=== PATIENT | male | born 1995 | race Caucasian/White ===

== ENCOUNTER 2020-01-07 11:19 | Emergency (ER) | payer BC, OTHER ==
[2020-01-07] MEDS ORDERED: Tetracaine HCl/PF 0.5% 4 ML Bottle EYELF ONE (11:45)
--- NOTE | 2020-01-07 11:45 | EDM.PDOC ---
ED HPI GENERAL MEDICAL PROBLEM - General Chief Complaint: Eye Problems Stated Complaint: RIGHT EYE PAIN Time Seen by Provider: 01/07/20 11:30 Source of Information: Reports: Patient History Limitations: Reports: No Limitations - History of Present Illness INITIAL COMMENTS - FREE TEXT/NARRATIVE: This 25 year old male states that he picked up a grinding saw and turned it on and something may have gotten in his right eye. He complains of pain in the right eye with slight blurry vision. He denies any double vision or any other visual disturbances. Right Eye Pain Score (Numeric/FACES): 4 - Related Data Allergies Allergy/AdvReac Type Severity Reaction Status Date / Time amoxicillin Allergy Hives Verified 08/01/18 16:19 Home Meds: Home Meds Fluorometholone [Flarex 0.1% Ophth Susp] 5 ml EYERT ASDIRECTED #1 bottle [Rx] Past Medical History - Past Health History Medical/Surgical History: Denies Medical/Surgical History HEENT History: Reports: None Cardiovascular History: Reports: None Respiratory History: Reports: None Gastrointestinal History: Reports: None Genitourinary History: Reports: None Musculoskeletal History: Reports: None Neurological History: Reports: None Psychiatric History: Reports: Anxiety Endocrine/Metabolic History: Reports: None Hematologic History: Reports: None Immunologic History: Reports: None Oncologic (Cancer) History: Reports: None Dermatologic History: Reports: None - Infectious Disease History Infectious Disease History: Reports: Chicken Pox - Past Surgical History HEENT Surgical History: Reports: Adenoidectomy, Tonsillectomy Social & Family History - Family History Cardiac: Reports: Hypertension - Caffeine Use Caffeine Use: Reports: Coffee, Soda ED ROS GENERAL - Review of Systems Review Of Systems: See Below Constitutional: Reports: No Symptoms HEENT: Reports: Eye Pain (right eye pain with slight blurry vision). Denies: Eye Discharge, Glasses Respiratory: Reports: No Symptoms Cardiovascular: Reports: No Symptoms Endocrine: Reports: No Symptoms GI/Abdominal: Reports: No Symptoms : Reports: No Symptoms Musculoskeletal: Reports: No Symptoms Skin: Reports: No Symptoms Neurological: Reports: No Symptoms ED EXAM GENERAL W FULL EYE - Physical Exam Exam: See Below Exam Limited By: No Limitations General Appearance: Alert, WD/WN, No Apparent Distress Eye Exam: Right Eye: Conjunctival Injection (slight), Foreign Body (possible FB but Fluocencin stain is negative.), Vision Changes (slight blurry vision), Bilateral Eye: EOMI, Normal Fundi, PERRL (4mm) Visual Acuity (R) 20/: 25 Visual Acuity (L) 20/: 20 (OU is 20/15) With Correction: No Eyelids: Bilateral: Normal Appearance Conjunctiva & Sclera: Right: Injected (slightly injected) Cornea Exam: Right: Examined with Flourescein (Negative for FB or abrasion) Extraocular Movements: Bilateral: Intact Pupillary Size: Bilateral: 4 mm Pupillary Reaction: Bilateral: Brisk Anterior Chamber: Bilateral: Normal Appearance Posterior Chamber: Bilateral: Normal Funduscopic Ears: Normal External Exam, Normal TMs Nose: Normal Inspection Throat/Mouth: Normal Inspection, Normal Oropharynx Head: Atraumatic, Normocephalic Neck: Normal Inspection Respiratory/Chest: No Respiratory Distress, Lungs Clear Cardiovascular: Normal Peripheral Pulses, Regular Rate, Rhythm GI/Abdominal: Normal Bowel Sounds (Male) Exam: Deferred Rectal (Males) Exam: Deferred Back Exam: Normal Inspection Extremities: Normal Inspection, Normal Range of Motion Neurological: Alert, Oriented (times 4) Skin Exam: Warm, Dry, Intact, Normal Color, No Rash Course - Vital Signs Text/Narrative:: I reviewed the patient CT of the orbit which is unremarkable. He will be discharged. He agrees with the discharge plan. Last Recorded V/S: Last Vital Signs Temp 97.0 F 01/07/20 13:02 Pulse 66 01/07/20 13:02 Resp 16 01/07/20 13:02 BP 126/79 01/07/20 13:02 Pulse Ox 99 01/07/20 13:02 - Orders/Labs/Meds Meds: Medications Discontinued Medications Generic Name Dose Route Start Last Admin Trade Name Freq PRN Reason Stop Dose Admin Tetracaine HCl 1 ml 01/07/20 11:45 01/07/20 12:06 Tetracaine 0.5% Steri-Unit Mackenzie EYELF 01/07/20 11:46 1 ml ASDIRECTED ONE Administration Departure - Departure Time of Disposition: 13:20 Disposition: Home, Self-Care 01 Condition: Good Clinical Impression: Inflammation of right eye - Discharge Information *PRESCRIPTION DRUG MONITORING PROGRAM REVIEWED*: Yes *COPY OF PRESCRIPTION DRUG MONITORING REPORT IN PATIENT MALI: Yes Instructions: How to Use Eye Drops and Eye Ointments Referrals: PCP,None [Primary Care Provider] - Forms: ED Department Discharge, ED Return to Work/School Form Additional Instructions: Take all medications as directed. Follow up with your PCP in the next two to four days. Rest for the next 24 hours. NO work for two days. Return to the ED if your condition gets worse or should you have any questions or concerns. The following information is given to patients seen in the emergency department who are being discharged to home. This information is to outline your options for follow-up care. We provide all patients seen in our emergency department with a follow-up referral. The need for follow-up, as well as the timing and circumstances, are variable depending upon the specifics of your emergency department visit. If you don't have a primary care physician on staff, we will provide you with a referral. We always advise you to contact your personal physician following an emergency department visit to inform them of the circumstance of the visit and for follow-up with them and/or the need for any referrals to a consulting specialist. The emergency department will also refer you to a specialist when appropriate. This referral assures that you have the opportunity for follow-up care with a specialist. All of these measure are taken in an effort to provide you with optimal care, which includes your follow-up. Under all circumstances we always encourage you to contact your private physician who remains a resource for coordinating your care. When calling for follow-up care, please make the office aware that this follow-up is from your recent emergency room visit. If for any reason you are refused follow-up, please contact the [facility] Emergency Department at and asked to speak to the emergency department charge nurse. Sepsis Event Note - Focused Exam Vital Signs: Vital Signs Temp Pulse Resp BP Pulse Ox 01/07/20 13:02 97.0 F 66 16 126/79 99 01/07/20 11:33 97.1 F 71 15 153/63 H 100 Date Exam was Performed: 01/07/20 Time Exam was Performed: 13:18
--- NOTE | 2020-01-07 12:54 | CT ---
CT orbits Technique: Multiple axial sections through the orbits were obtained. Reconstructed coronal and sagittal images were reviewed. Findings: Right and left globes are symmetric. No radiopaque foreign object is appreciated. No retrobulbar abnormality is appreciated. Extraocular muscles and optic nerves are symmetric between right and left sides. Paranasal sinuses are clear. Mastoid sinuses are clear. No acute osseous finding is seen. Impression: 1. No radiopaque foreign object is appreciated. 2. Nothing acute is identified on CT study of the orbits. Diagnostic code #1 This report was dictated in MDT
== END 2020-01-07 13:38 | disposition home or self-care (01) ==
LOC: MW.ED 11:19
DX: H57.89 Other specified disorders of eye and adnexa (principal); H53.8 Other visual disturbances; Z88.1 Allergy status to other antibiotic agents
CPT/HCPCS: 70480; 70480-26; 99283; 99283-25